=== PATIENT | male | born 1940 | race Caucasian/White ===

== ENCOUNTER 2019-12-25 21:11 | Inpatient (IN) | payer OTHER, MEDICARE ==
[~2019-12-25] VITALS: Ht 177.8 cm; Wt 88.5 kg
[2019-12-25] MEDS ORDERED: HYDCHL25 PO (21:30)
[2019-12-25] MEDS ORDERED: LISI20 PO (21:30)
[2019-12-25] MEDS ORDERED: CIPR750 PO (21:31)
[2019-12-25 21:38] LABS: BASOPHILS ABSOLUTE AUTO 0.04 K/mm3 (0.00-0.23); BASOPHILS PERCENT AUTO 1 % (0-2); EOSINOPHILS ABSOLUTE AUTO 0.04 K/mm3 (0.00-0.68); EOSINOPHILS PERCENT AUTO 1 % (0-6); Hematocrit 42.7 % (37.0-53.0); Hemoglobin 13.4 g/dL (13.5-17.5); IMMATURE GRAN ABSOLUTE AUTO 0.03 K/mm3 (0.00-0.10); IMMATURE GRAN PERCENT AUTO 0 % (0-1); LYMPHOCYTES ABSOLUTE AUTO 0.74 K/mm3 (0.84-5.20); LYMPHOCYTES PERCENT AUTO 10 % (21-46); MONOCYTES ABSOLUTE AUTO 0.63 K/mm3 (0.16-1.47); MONOCYTES PERCENT AUTO 8 % (4-13); Mean Corpuscular HGB 29.5 pg (26.0-34.0); Mean Corpuscular HGB Conc 31.4 g/dL (31.5-36.5); Mean Corpuscular Volume 94 fL (80-100); Mean Platelet Volume 11.4 fL (9.1-12.4); NEUTROPHILS ABSOLUTE AUTO 6.31 K/mm3 (1.96-9.15); NEUTROPHILS PERCENT AUTO 81 % (41-73); Platelet Count 337 K/mm3 (150-400); RDW Coefficient Variation 13.7 % (11.7-14.2); RDW Standard Deviation 47.9 fL (35.1-46.3); Red Blood Cell Count 4.54 M/mm3 (4.30-5.90); White Blood Cell Count 7.79 K/mm3 (4.00-11.30)
[2019-12-25 21:56] LABS: Troponin I <0.015 ng/mL (0.000-0.040)
[2019-12-25 21:59] LABS: Alanine Aminotransfer (ALT/SGP 24 U/L (12-78); Albumin, Blood 3.4 g/dL (3.4-5.0); Albumin/Globulin Ratio 0.8 (0.8-1.8); Alk Phos 154 U/L (50-136); Anion Gap 8 mmol/L (6-16); Aspartate Aminotrans (AST/SGOT 11 U/L (12-37); Bilirubin, Total 0.9 mg/dL (0.1-1.0); Blood Urea Nitrogen 53 mg/dL (8-24); Bun/Creatinine Ratio 46.5 (12.0-20.0); CO2, Blood 26 mmol/L (21-32); Calcium, Blood 9.7 mg/dL (8.5-10.1); Chloride, Blood 94 mmol/L (98-108); Creatinine, Blood 1.14 mg/dL (0.60-1.20); Glomerular Filtration Rate >60 (60-); Glucose, Blood 904 mg/dL (70-99); Potassium, Blood 5.6 mmol/L (3.5-5.5); Sodium, Blood 128 mmol/L (136-145); Total Protein, Blood 7.4 g/dL (6.4-8.2)
[2019-12-25 22:00] LABS: Source, Urine Clean Catch
[2019-12-25 22:05] LABS: Appearance, Urine Clear (Clear); Bilirubin, Urine Neg (Neg); Blood, Urine 1+ (Neg); Color, Urine Yellow (P-Yellow); Glucose Qualitative, Urine 4+ (Neg); Ketones, Urine 1+ (Neg); Leukocyte Esterase, Urine Neg (Neg); Nitrite, Urine Neg (Neg); Protein, Urine Neg (Neg); Urobilinogen, Urine NORM (Normal)
[2019-12-25 22:11] LABS: Bacteria Few /hpf; Hyaline Casts 0-2 /lpf (0-2); Red Blood Cells, Urine 0-2 /hpf (0-2); Squamous Epithelial Cells Not Seen /hpf (Few); White Blood Cells, Urine 0-2 /hpf (0-5)
--- NOTE | 2019-12-25 23:25 | NUR ---
ADMIT RECEIVED FROM ER VIA GURNEY. AWAKE AND ALERT. ORIENTED AND COOPERATIVE. MONITOR SHOWS ST, RATE 110s. BP STABLE. DENIES C/O PAIN OR NAUSEA AT THIS TIME. MOVES ALL EXTREMITIES AND IS ABLE TO REPOSITION SELF IN BED. DIXON PATENT AND DRAINING CLEAR YELLOW URINE. LEFT GREAT TOE WOUND WITH DRSG D/I. SEE ADMIT ASSESSMENT FOR FULL ASSESSMENT.
[2019-12-25 23:37] LABS: Glucose, Blood 560 mg/dL (70-99)
--- NOTE | 2019-12-26 02:13 | NUR ---
CALL TO MD TREATMENT PLAN DISCUSSED WITH DR. MULLINS- NEW ORDER RECEIVED TO TRANSITION TO SQ LANTUS AND HUMALOG ONCE CBG IS <200 AND INSULIN IS DC'D. ALSO NOTIFIED OF SBP 80s- WILL GIVE 500CC NS IV BOLUS PER NEW ORDER.
[2019-12-26 03:52] LABS: BASOPHILS ABSOLUTE AUTO 0.06 K/mm3 (0.00-0.23); BASOPHILS PERCENT AUTO 1 % (0-2); EOSINOPHILS ABSOLUTE AUTO 0.14 K/mm3 (0.00-0.68); EOSINOPHILS PERCENT AUTO 2 % (0-6); Hematocrit 41.9 % (37.0-53.0); Hemoglobin 13.3 g/dL (13.5-17.5); IMMATURE GRAN ABSOLUTE AUTO 0.04 K/mm3 (0.00-0.10); IMMATURE GRAN PERCENT AUTO 0 % (0-1); LYMPHOCYTES ABSOLUTE AUTO 1.53 K/mm3 (0.84-5.20); LYMPHOCYTES PERCENT AUTO 17 % (21-46); MONOCYTES ABSOLUTE AUTO 1.02 K/mm3 (0.16-1.47); MONOCYTES PERCENT AUTO 11 % (4-13); Mean Corpuscular HGB 29.8 pg (26.0-34.0); Mean Corpuscular HGB Conc 31.7 g/dL (31.5-36.5); Mean Corpuscular Volume 94 fL (80-100); Mean Platelet Volume 11.3 fL (9.1-12.4); NEUTROPHILS ABSOLUTE AUTO 6.39 K/mm3 (1.96-9.15); NEUTROPHILS PERCENT AUTO 70 % (41-73); Platelet Count 342 K/mm3 (150-400); RDW Coefficient Variation 13.6 % (11.7-14.2); RDW Standard Deviation 46.8 fL (35.1-46.3); Red Blood Cell Count 4.47 M/mm3 (4.30-5.90); White Blood Cell Count 9.18 K/mm3 (4.00-11.30)
[2019-12-26 04:13] LABS: Alanine Aminotransfer (ALT/SGP 23 U/L (12-78); Albumin, Blood 3.2 g/dL (3.4-5.0); Albumin/Globulin Ratio 0.8 (0.8-1.8); Alk Phos 136 U/L (50-136); Anion Gap 6 mmol/L (6-16); Aspartate Aminotrans (AST/SGOT 12 U/L (12-37); Bilirubin, Total 0.6 mg/dL (0.1-1.0); Blood Urea Nitrogen 48 mg/dL (8-24); Bun/Creatinine Ratio 46.6 (12.0-20.0); CO2, Blood 27 mmol/L (21-32); Calcium, Blood 9.5 mg/dL (8.5-10.1); Chloride, Blood 104 mmol/L (98-108); Creatinine, Blood 1.03 mg/dL (0.60-1.20); Globulin, Blood 3.8 g/dL (2.2-4.0); Glomerular Filtration Rate >60 (60-); Glucose, Blood 321 mg/dL (70-99); Sodium, Blood 137 mmol/L (136-145)
[2019-12-26] MEDS ORDERED: NIAC500 PO (04:57)
[2019-12-26] MEDS ORDERED: TOCO1000 PO (04:57)
[2019-12-26] MEDS ORDERED: ASCO500 PO (04:57)
[2019-12-26] MEDS ORDERED: GLUC500 PO (04:58)
--- NOTE | 2019-12-26 05:20 | NUR ---
AFIB MONITOR SHOWS AFIB, RATE 120-130s. HYPOTENSION NOTED WITH SBP 70s-80s. DR. MULLINS AWARE AND NEW ORDER RECEIVED FOR AN ADDITIONAL 50CC NS IV BOLUS.
--- NOTE | 2019-12-26 06:42 | NUR ---
SHIFT SUMMARY INSULIN GTT INFUSED BETWEEN 4-5UNITS/HR DURING NOC- HAS BEEN OFF SINCE 624 WITH PLAN TO TRANSITION TO SC INSULIN THIS AM. SLEPT INTERMITTENTLY AND ROUSES EASILY TO VERBAL STIMULI. DENIES PAIN/NAUSEA. NS INFUSING AT 100CC/HR. TOTAL OF 1000CC ADDITIONAL NS GIVEN FOR HYPOTENSION. INITIAL RHYTHM ST, BUT CONVERTED TO AFIB THIS AM WITH RATE 110-130s. MD IS AWARE AND PLAN IS TO GIVE LOPRESSOR IV IF BP IS STABLE. DIXON PATENT AND DRAINING CLEAR YELLOW URINE. WILL REPORT TO ONCOMING SHIFT WHEN AVAILABLE.
--- NOTE | 2019-12-26 09:52 | NUR ---
Echocardiogram using 0.50ml of Definity contrast performed.
--- NOTE | 2019-12-26 10:44 | NUR ---
CARE ASSUMED ASSESSMENT COMPLETED, PT DENIES PAIN AT THIS TIME, ALSO DENIES CP/PRESSURE AND SOB DESPITE HR 120-150 AFIB WITH RVR, DENIES PALPITATIONS. BP HYPOTENSIVE, CUFF MOVED TO LOWER FA AND IS NOW READING NORMOTENSIVE, PT REPORTS INTERMITTENT DIZZINESS. CBG 167, NO COVERAGE INDICATED. PT SAT UP IN BED, EATING BREAKFAST WITHOUT DIFFICULTY, DENIES NEEDS OR C/O. AT 0843 PT SPONTANEOUSLY CONVERTED TO SINUS RHYTHM, HR 80'S-90'S, PT WAS LYING IN BED RESTING AT THE TIME. ECHO COMPLETED.
--- NOTE | 2019-12-26 12:29 | NUR ---
UPDATE PT ASSISTED TO TOILET FOR SMALL BM, THEN TO CHAIR. MEDICATED FOR CBG 331, TOLERATED LUNCH WELL. VS REMAIN STABLE, PT REMAINS IN NSR, DENIES C/O CP/PRESSURE OR SOB. SPO2 99% ON RA, PT DENIES PAIN AT REST.
--- NOTE | 2019-12-26 17:48 | NUR ---
PCU TRANSFER NOTE PT SLEPT IN CHAIR OFF AND ON THIS AFTERNOON, DENIED C/O CP/PRESSURE AND SOB, DENIED PAIN. HR 80'S-90'S SINUS, NO ADDITIONAL AFIB SINCE CONVERSION THIS MORNING. PT'S CBG'S IN 300'S THIS AFTERNOON, DR. FRIEND NOTIFIED, NEW ORDER RECEIVED, INSULIN ADMINISTERED. REPORT GIVEN TO EUGENIE MARIA IN PCU, PT TO PCU 15 AT 1730 WITH CHART, MEDS, AND BELONGINGS, VSS, DENIES C/O.
--- NOTE | 2019-12-26 18:37 | NUR ---
ASSUME CARE PT TRANSFERRED FROM ICU 14 VIA RECLINER, REPORT RECEIVED FROM MILIND TRAORE. PT IS ALERT AND ORIENTED, VITALS STABLE BP SYSTOLIC ON THE 150'S, HRR NSR ON THE 90'S, DENIES CHEST PAIN/PRESSURE. SATS ABOVE 93% ON ROOMAIR, DENIES SOB. PT LAST CBG'S ON THE 300'S, INSULIN SWITCHED TO MEDIUM SLIDING SCALE PER REPORT. PT IS A 2PA VIA FWW FOR TRANSFERS, HAS DIXON DRAINING CLEAR YELLOW URINE VIA GRAVITY. CONTINENT OF BOWEL. PT HAS LEFT GREAT TOE ULCER WITH DRESSING CDI. LUNGS CLEAR DIMINISHED ON THE BASES. DENIES ANY PAIN AT THIS TIME. PT CURRENTLY UP IN THE RECLINER, CALL LIGHTS WITHIN REACH TO REPORT TO ONCOMING SHIFT.
[2019-12-26] MEDS ORDERED: TRAM50 PO (22:27)
[2019-12-27 04:44] LABS: BASOPHILS ABSOLUTE AUTO 0.03 K/mm3 (0.00-0.23); BASOPHILS PERCENT AUTO 0 % (0-2); EOSINOPHILS ABSOLUTE AUTO 0.22 K/mm3 (0.00-0.68); EOSINOPHILS PERCENT AUTO 3 % (0-6); Hematocrit 37.9 % (37.0-53.0); IMMATURE GRAN ABSOLUTE AUTO 0.04 K/mm3 (0.00-0.10); IMMATURE GRAN PERCENT AUTO 1 % (0-1); LYMPHOCYTES ABSOLUTE AUTO 1.43 K/mm3 (0.84-5.20); LYMPHOCYTES PERCENT AUTO 21 % (21-46); MONOCYTES ABSOLUTE AUTO 0.55 K/mm3 (0.16-1.47); MONOCYTES PERCENT AUTO 8 % (4-13); Mean Corpuscular HGB 29.8 pg (26.0-34.0); Mean Corpuscular HGB Conc 31.7 g/dL (31.5-36.5); Mean Corpuscular Volume 94 fL (80-100); Mean Platelet Volume 11.1 fL (9.1-12.4); NEUTROPHILS ABSOLUTE AUTO 4.49 K/mm3 (1.96-9.15); NEUTROPHILS PERCENT AUTO 66 % (41-73); Platelet Count 284 K/mm3 (150-400); RDW Coefficient Variation 13.8 % (11.7-14.2); RDW Standard Deviation 47.6 fL (35.1-46.3); Red Blood Cell Count 4.03 M/mm3 (4.30-5.90); White Blood Cell Count 6.76 K/mm3 (4.00-11.30)
[2019-12-27 05:01] LABS: Albumin, Blood 2.7 g/dL (3.4-5.0); Anion Gap 3 mmol/L (6-16); Blood Urea Nitrogen 30 mg/dL (8-24); Bun/Creatinine Ratio 38.1 (12.0-20.0); CO2, Blood 29 mmol/L (21-32); Calcium, Blood 8.7 mg/dL (8.5-10.1); Chloride, Blood 105 mmol/L (98-108); Creatinine, Blood 0.79 mg/dL (0.60-1.20); Glomerular Filtration Rate >60 (60-); Glucose, Blood 213 mg/dL (70-99); Phosphorus, Blood 2.1 mg/dL (2.5-4.9); Potassium, Blood 4.1 mmol/L (3.5-5.5); Sodium, Blood 137 mmol/L (136-145)
--- NOTE | 2019-12-27 05:38 | NUR ---
SHIFT SUMMARY PT SLEEPING IN ROOM COMFORTABLY AT THIS TIME. NO ACUTE CHANGES IN STATUS T/O NIGHT. PT SLEPT WELL. DENIED ANY CP OR SOB. PT CBG WAS HIGH AT BEDTIME, PROVIDER NOTIFED AND PT MEDICATED PER EMAR. RESP EVEN UNLABORED ON RA W/ SATS >92%. PT DENIED OTHER NEEDS. USED CALL LIGHT TO GET OUT OF BED. PT HEAVY 1 PERSON ASSIST. CALL LIGHT IN REACH.
--- NOTE | 2019-12-27 11:14 | NUR ---
SPOKE WITH DR BAILEY BY PHONE RE: CONSULT ORDER.
--- NOTE | 2019-12-27 18:16 | NUR ---
SHIFT SUMMARY PATIENT ADMIN PAIN MED THIS AM FOR GEN ARTHRITIS PAIN, NO FURTHER C/O. VSS. CBG'S CHECKED AND SS COVERAGE ADMIN. FC D/C'D, PATIENT VOIDING W/O DIFFICULTY. APPETITE GOOD. AWARD MACHINE OPERATOR IN TO SEE AND INFO GIVEN. INSULIN ADMIN REVIEWED WITH PATIENT. WILL REQUEST HH FOR ONGOING DM EDUCATION ON DISCHARGE. NO NEEDS AT THIS TIME.
--- NOTE | 2019-12-28 05:22 | NUR ---
SHIFT SUMMARY PT SLEEPING IN ROOM COMFORTABLY AT THIS TIME. NO ACUTE CHANGES IN STATUS T/O NIGHT. PT SLEPT WELL, HAD SLEEP STUDY DONE W/ RT. PT WOKE ONCE DURING STUDY TO USE URINAL OTHERWISE SLEPT WELL. RESP EVEN UNLABORED ON RA W/ SATS >92%. PT DENIED ANY CP OR SOB. PT WAS ABLE TO AMBULATE INTO RR W/ 4WW ONCE DURING NIGHT TO ATTEMPT BM. PT REPORTED UNABLE. PT DOES REPORT ABLE TO PASS FLATUS. DENIED OTHER NEEDS. CALL LIGHT IN REACH.
[2019-12-28 07:13] LABS: BASOPHILS ABSOLUTE AUTO 0.04 K/mm3 (0.00-0.23); BASOPHILS PERCENT AUTO 1 % (0-2); EOSINOPHILS ABSOLUTE AUTO 0.21 K/mm3 (0.00-0.68); EOSINOPHILS PERCENT AUTO 3 % (0-6); Hematocrit 40.1 % (37.0-53.0); IMMATURE GRAN ABSOLUTE AUTO 0.03 K/mm3 (0.00-0.10); IMMATURE GRAN PERCENT AUTO 0 % (0-1); LYMPHOCYTES ABSOLUTE AUTO 1.36 K/mm3 (0.84-5.20); LYMPHOCYTES PERCENT AUTO 20 % (21-46); MONOCYTES ABSOLUTE AUTO 0.76 K/mm3 (0.16-1.47); MONOCYTES PERCENT AUTO 11 % (4-13); Mean Corpuscular HGB 30.2 pg (26.0-34.0); Mean Corpuscular HGB Conc 32.4 g/dL (31.5-36.5); Mean Corpuscular Volume 93 fL (80-100); NEUTROPHILS ABSOLUTE AUTO 4.31 K/mm3 (1.96-9.15); NEUTROPHILS PERCENT AUTO 64 % (41-73); Platelet Count 297 K/mm3 (150-400); RDW Coefficient Variation 13.9 % (11.7-14.2); RDW Standard Deviation 47.4 fL (35.1-46.3); White Blood Cell Count 6.71 K/mm3 (4.00-11.30)
[2019-12-28 07:23] LABS: Anion Gap 6 mmol/L (6-16); Blood Urea Nitrogen 20 mg/dL (8-24); Bun/Creatinine Ratio 25.4 (12.0-20.0); CO2, Blood 27 mmol/L (21-32); Chloride, Blood 102 mmol/L (98-108); Creatinine, Blood 0.79 mg/dL (0.60-1.20); Glomerular Filtration Rate >60 (60-); Glucose, Blood 174 mg/dL (70-99); Sodium, Blood 135 mmol/L (136-145)
--- NOTE | 2019-12-28 08:38 | NUR ---
pt sitting up in a recliner for breakfast, a/ox3, pleasant and cooperative with care, follows commands well, denies pain at this time, lungs are clear in upper laura, dim in bases, resp even and unlabored, no cough noted, is on r/a, hrr, tele in place running sr per monitor, see strip, cap refill <3sec, vs stable, iv to r and l fa's, site clear and patent, one on left is itching and pink this was removed intact, btx4, abd flat soft nontender, voids without diff, skin c/w/d, maew, uses a walker to ambulate, daina, call light in reach.
--- NOTE | 2019-12-28 12:39 | NUR ---
pt had a visitor, ate lunch, no complaints or needs. call light in reach.
--- NOTE | 2019-12-28 16:12 | NUR ---
PT HAS BEEN TRANSFERRED TO MEDICAL FLOOR VIA WHEELCHAIR WITH ALL HIS BELONGINGS, HIGH PRESSURE KETTLE OPERATOR IN ATTENDENCE. REPORT WAS GIVEN TO PRIYANK TRAORE.
--- NOTE | 2019-12-28 17:48 | NUR ---
SHIFT SUMMARY PATIENT TRANSFER FROM PCU TODAY. NO ACUTE CONCERNS FROM THE PATIENT. HE WALKS WELL WITH ONE PERSON ASSIST. BLOOD SUGAR WAS TAKEN. HE DOES NEED DIABETIC TEACHING BUT OTHERWISE VERY PLEASANT. DENIES SHORTNESS OF BREATH, CHEST PAIN, OR DIGESTIVE DISCOMFORT.
--- NOTE | 2019-12-29 07:32 | NUR ---
SHIFT SUMMARY: AAOX3. COMMUNICATES NEEDS. AWAKE THROUGH MUCH OF THE NIGHT. SEVERAL VOIDS AND REPORTS NEW ONSET HEARTBURN. IMRPOVED W/SITTING UP AND DRINKING CARBONATED SODA AND CRACKERS. IV ABT INFUSED ORDERED. DRESSING TO LLE GRT TOE ULCER CDI. NO REPORTS OF PAIN OVERNIGHT. CBG 361 AT HS. INSULIN ADMINISTERED ORDERED. NO ACUTE CHANGES OVERNIGHT. WILL CONT TO MONITOR.
--- NOTE | 2019-12-29 18:19 | NUR ---
PT QUITE PLEASANT COOP TALKATIVE TODAY. STATES FEELS SOME IMPROVEMENT. TOOK CULTURE OF FOOT TODAY. TOOK SHOWER, WHICH HE STATES WORE HIM OUT. NO NEW CONCERNS TODAY. BED IN LOW POSITION, CALL LITE IN REACH, CALLS APPROP
--- NOTE | 2019-12-30 00:55 | NUR ---
PT RECEIVED COVERAGE FOR CBG AT - RECEIVED BOTH HUMALOG AND LANTUS INSULINS. HS SNACK GIVEN, BUT WAS ENCOURAGED TO LET US DO FOLLOW UP GLUCOSE LEVEL LATER AND PT REFUSED. CURRENTLY ASYMPTOMATIC, WILL MONITOR, CALL LIGHT IN REACH.
--- NOTE | 2019-12-30 05:20 | NUR ---
SHIFT SUMMARY HAS BEEN UP A FEW TIMES TO GO TO THE BATHROOM. ABLE TO DO SO WITH WALKER AND SUPERVISION. ANTIBIOTICS ADMINISTERED PER MD ORDERS -SEE MAR FOR DETAILS. CALL LIGHT IN REACH. RESTING QUIETLY AT THIS WRITING.
--- NOTE | 2019-12-30 17:37 | NUR ---
CALLED DIETITION OFC. CONSULT MADE, ASKED THEN TO COME SEE PT AND HELP HIM WITH DIET OPTIONS, FOOD CHANGES. WHATEVER MAY HELP HIM MANAGE HIS DIABETES
--- NOTE | 2019-12-30 18:11 | NUR ---
PT PLEASANT TODAY. DID ORDER NUTRITION TO COME VISIT ABOUT HIS DIETARY NEEDS FOR ADA DIET. GAVE HANDOUT ON DIABETES. TAUGHT HIM TO USE INS PEN TODAY. HE DID ALL HIS OWN INSULIN. ALSO GAVE HIGH SLIDING SCALE SHEET TO LEARN HOW TO USE. HE SEEMS TO BE GETTING IDEA PRETTY WELL ON SCALE AND USING PEN. FOOT DR TO SEE TUESDAY. NO NEW CONCERNS BED IN LOW POSITION, CALL LITE IN REACH, CALLS APPROP
--- NOTE | 2019-12-30 23:18 | NUR ---
CONTINUE TO ASSIST PT WITH SELF ADMINISTRATION OF INSULIN AND REVIEW OF BLOOD SUGAR LEVELS WHICH CORRESPOND WITH THE INSULIN. DISPLAYED ABILITY TO SELF ADMIN OF LANTUS INSULIN. CALL LIGHT IN REACH
--- NOTE | 2019-12-31 04:36 | NUR ---
SHIFT SUMMARY HAS BEEN RESTING QUIETLY INTERMITTENTLY THIS SHIFT. NO NOTED DISTRESS. IV ANTIBIOTIC INFUSED. NO C/O VOICED. ABLE TO AMBULATE TO BATHROOM WITHOUT ASSIST. CALL LIGHT IN REACH.
[2019-12-31 05:57] LABS: BASOPHILS ABSOLUTE AUTO 0.04 K/mm3 (0.00-0.23); BASOPHILS PERCENT AUTO 1 % (0-2); EOSINOPHILS ABSOLUTE AUTO 0.23 K/mm3 (0.00-0.68); EOSINOPHILS PERCENT AUTO 3 % (0-6); Hematocrit 37.3 % (37.0-53.0); IMMATURE GRAN ABSOLUTE AUTO 0.08 K/mm3 (0.00-0.10); IMMATURE GRAN PERCENT AUTO 1 % (0-1); LYMPHOCYTES ABSOLUTE AUTO 1.56 K/mm3 (0.84-5.20); LYMPHOCYTES PERCENT AUTO 19 % (21-46); MONOCYTES ABSOLUTE AUTO 1.07 K/mm3 (0.16-1.47); MONOCYTES PERCENT AUTO 13 % (4-13); Mean Corpuscular HGB 29.9 pg (26.0-34.0); Mean Corpuscular HGB Conc 32.2 g/dL (31.5-36.5); Mean Corpuscular Volume 93 fL (80-100); Mean Platelet Volume 10.9 fL (9.1-12.4); NEUTROPHILS ABSOLUTE AUTO 5.14 K/mm3 (1.96-9.15); NEUTROPHILS PERCENT AUTO 63 % (41-73); Platelet Count 286 K/mm3 (150-400); RDW Coefficient Variation 14.1 % (11.7-14.2); RDW Standard Deviation 48.1 fL (35.1-46.3); Red Blood Cell Count 4.01 M/mm3 (4.30-5.90); White Blood Cell Count 8.12 K/mm3 (4.00-11.30)
[2019-12-31 06:12] LABS: Anion Gap 7 mmol/L (6-16); Blood Urea Nitrogen 19 mg/dL (8-24); Bun/Creatinine Ratio 28.1 (12.0-20.0); CO2, Blood 26 mmol/L (21-32); Calcium, Blood 9.3 mg/dL (8.5-10.1); Chloride, Blood 104 mmol/L (98-108); Creatinine, Blood 0.68 mg/dL (0.60-1.20); Glomerular Filtration Rate >60 (60-); Glucose, Blood 127 mg/dL (70-99); Sodium, Blood 137 mmol/L (136-145)
--- NOTE | 2019-12-31 17:59 | NUR ---
SHIFT SUMMARY PT SEEN BY ID, DR. CULP. ANTIBIOTICS CHANGED TO PO. ORDER TO LEAVE OUT IV OBTAINED BY DR. KERNS THIS SHIFT. WOUND CARE COMPLETED AT BEDSIDE THIS SHIFT. MINIMAL DRAINAGE. PT IND IN ROOM. AMBULATES TO BATHROOM WELL. NO OTHER ACUTE CHANGES IN ASSESSMENT AT THIS TIME. VSS. WILL CONTINUE TO MONITOR UNTIL TURNOVER IS COMPLETE.
--- NOTE | 2020-01-01 03:46 | NUR ---
SUMMARY NO ISSUES NOTED. PT UP LATE WATCHING TV. PT CURRENTLY SLEEPING IN NO DISTRESS. CALL LIGHT IN REACH.
[2020-01-01] MEDS ORDERED: AMOCLA875 PO (12:54)
[2020-01-01] MEDS ORDERED: ASPI81CH PO (12:54)
[2020-01-01] MEDS ORDERED: BASAGLAR K100 UNIT/1 SC (12:56)
[2020-01-01] MEDS ORDERED: HUMALOG KW100 UNIT/1 (12:57)
[2020-01-01] MEDS ORDERED: GLUCOPHAGE1000 MG PO (13:00)
[2020-01-01] MEDS ORDERED: SIME80CH PO (13:01)
[2020-01-01] MEDS ORDERED: ONDA4ODT MM (13:01)
[2020-01-01] MEDS ORDERED: Nyamyc15 GM TOP (13:01)
[2020-01-01] MEDS ORDERED: ABAT250V (13:04)
[2020-01-01] MEDS ORDERED: PROBIOTIC250 MG PO (13:04)
--- NOTE | 2020-01-01 15:26 | NUR ---
1530 PT DISCHARGE HOME. NURSE WENT OVER INSULIN ADMINISTRATION AND EDUCATION WITH PT. MEDS FAXED TO IN PHARMACY. PT DRESSED WITH STAFF ASSISTANCE. PT INSTRUCTED TO FOLLOW UP WITH PCP. PT WHEELED OUT AND TAKEN HOME BY SON IN LAW.
== END 2020-01-01 15:15 | disposition home health service (06) | DRG 638 ==
LOC: ER 21:11 → ICUW 21:12 → ER 22:04 → ICUW 22:53 → PCU 12-26 18:23 → MEDS 12-27 10:21 → PCU 12-27 10:22 → MEDS 12-28 16:07 → ENPENDDIS 01-01 10:00 → MEDS 01-01 15:15
PROVIDERS: Emergency Medicine; Family Medicine; Internal Medicine; ADMIT Internal Medicine
DX: E11.65 Type 2 diabetes mellitus with hyperglycemia (principal); E87.1 Hypo-osmolality and hyponatremia; E86.0 Dehydration; E87.5 Hyperkalemia; I10 Essential (primary) hypertension; E11.621 Type 2 diabetes mellitus with foot ulcer; L97.529 Non-pressure chronic ulcer of other part of left foot with unspecified severity; E11.40 Type 2 diabetes mellitus with diabetic neuropathy, unspecified; I48.0 Paroxysmal atrial fibrillation; R09.02 Hypoxemia; Z79.899 Other long term (current) drug therapy
CPT/HCPCS: 36415; 51702; 71045; 73620; 80048; 80053; 80069; 81001; 82947; 83036; 83690; 84484; 85025; 85651; 86140; 87070; 87205; 93005; 93010; 94762; 96360; 96361; 96372; 99285-25; A9270-GY; C8929; G0378; J0690; J1650; J1815; J7030; J7040; Q9957

== ENCOUNTER 2022-07-22 10:53 | Day surgery (SDC) | payer OTHER ==
[~2022-07-22] VITALS: Ht 180.3 cm; Wt 101.6 kg
[~2022-07-22 10:53] MED LIST: ABAT250V; ACETAMINOPHEN500 MG PO; AMOCLA875 PO; ASPI81CH PO; Acerola C500 MG PO; BASAGLAR K100 UNIT/1 SC; CIPR750 PO; FISH OIL-VIT D1 EACH PO; FURO20 PO; FUROSEMIDE20 MG PO; GLUC500 PO; GLUCOPHAGE1000 MG PO; HUMALOG KW100 UNIT/1; HYDCHL25 PO; Lasix40 MG PO; METO25 PO; METOPROLOL TART25 MG PO; NAPR220 PO; Niacin1000 MG PO; Nyamyc15 GM TOP; ONDA4ODT MM; PROBIOTIC250 MG PO; SIME80CH PO; TOCO1000 PO; TRAM50 PO; VITAMIN D31000 UNI1 PO; XARELTO20 M1 PO; XARELTO20 MG PO; ZESTORETIC 20-1 EAC1 PO
[2022-07-22] MEDS ORDERED: ATOR40TA PO (11:22)
[2022-07-22] MEDS ORDERED: METO50ER PO (11:22)
[2022-07-22] MEDS ORDERED: TORSE20 PO (11:23)
[2022-07-22] MEDS ORDERED: ALDACTONE25 MG PO (11:24)
--- NOTE | 2022-07-22 12:55 | NUR ---
PATIENT ARRIVED IN RECOVERY ROOM VIA STRETCHER. R RADIAL ACCESS SITE, TR BAND IN PLACE WITH 12 CC OF AIR. SITE C/D/I, SOFT/NONTENDER, NO EVIDENCE OF HEMATOMA. PATIENT SITTING UP IN STRETCHER, EATING LUNCH WITHOUT DIFFICULTY AND CONVERSING APPROPIRATELY. VSS ON ROOM AIR.
--- NOTE | 2022-07-22 13:50 | NUR ---
2 CC OF AIR REMOVED FROM TR BAND AT THIS TIME. SOME BLOOD LEAKAGE FROM BAND, 3 CC OF AIR ADDED. NO LEAKAGE AFTER ADDITION. R WRIST/ARM SOFT/NON TENDER. NO EVIDENCE OF HEMATOMA. VSS ON ROOM AIR.
--- NOTE | 2022-07-22 14:20 | NUR ---
2 CC OF AIR REMOVED FROM TR BAND. SITE C/D/I, SOFT/NONTENDER, NO HEMATOMA. VSS ON ROOM AIR
--- NOTE | 2022-07-22 15:15 | NUR ---
ALL AIR REMOVED FROM R TR BAND AT THIS TIME. SITE C/D/I. SOFT/NONTENDER.O EVIDENCE OF HEMATOMA. VSS ON RA
--- NOTE | 2022-07-22 16:45 | NUR ---
PATIENT DISCHARGED AT THIS TIME VIA WHEELCHAIR TO HOME. R TR BAND REMOVED, SITE C/D/I SOFT/NONTENDER, NO EVIDENCE OF HEMATOMA. CLOTH DOT APPLIED TO ACCESS SITE. PATIENT INSTRUCTIONS AND MEDICATION LIST GIVEN TO PATIENT. ALL QUESTIONS AND CONCERNS ANSWERED. VSS ON ROOM AIR. BELONGINGS RETURNED TO PATIENT. PIV REMOVED, CATHETER DEVICE INTACT.
== END 2022-07-22 17:00 | disposition home or self-care (01) ==
LOC: MHTC 10:53
DX: I25.10 Atherosclerotic heart disease of native coronary artery without angina pectoris (principal); I48.20 Chronic atrial fibrillation, unspecified; E78.5 Hyperlipidemia, unspecified; E11.22 Type 2 diabetes mellitus with diabetic chronic kidney disease; I12.9 Hypertensive chronic kidney disease with stage 1 through stage 4 chronic kidney disease, or unspecified chronic kidney disease; N18.9 Chronic kidney disease, unspecified; E66.9 Obesity, unspecified
CPT/HCPCS: 76937; 93306; 93458; 99152; 99153; C1769; C1887; C1894; J1644; J2250; J3010; J7030; J7050; Q9967